=== PATIENT | female | born 1995 | race Caucasian/White ===

== ENCOUNTER 2017-09-06 14:46 | Emergency (ER) | payer BC ==
[2017-09-06] MEDS ORDERED: Lidocaine 4% Cream 5 GM TUBE w/ Tegaderm ONE (15:08)
[2017-09-06] MEDS ORDERED: Midazolam HCl 5 mg/ml Vial ONE (15:12)
== END 2017-09-06 16:45 | disposition home or self-care (01) ==
LOC: SCSER 14:46
DX: S01.01XA Laceration without foreign body of scalp, initial encounter (principal); V49.9XXA Car occupant (driver) (passenger) injured in unspecified traffic accident, initial encounter
CPT/HCPCS: 12001; J2250